=== PATIENT | male | born 1950 ===

== ENCOUNTER 2018-12-22 09:34 | Outpatient (CLI) | payer OTHER | END 2018-12-22 09:36 | disposition home or self-care (01) | LOC: RAD 09:34 | DX: M46.47 Discitis, unspecified, lumbosacral region (principal) ==

== ENCOUNTER → 2024-03-18 | Outpatient (CLI) | payer OTHER | END | disposition home or self-care (01) | LOC: TOM 11:41 | PROVIDERS: ATTEND Psychiatry & Neurology Clinical Neurophysiology | DX: D49.6 Neoplasm of unspecified behavior of brain (principal) ==